=== PATIENT | female | born 1970 | race Caucasian/White ===

== ENCOUNTER 2018-06-11 15:49 | Emergency (ER) | payer OTHER ==
[2018-06-11] MEDS ORDERED: hydrALAzine 20 MG INJ IV (19:30)
[2018-06-11 19:37] LABS: ADD MAN DIFF? NO
[2018-06-11] MEDS: hydrALAzine 20 MG INJ IV (19:43)
[2018-06-11] MEDS: KETOROLAC 30 MG INJ IV (19:47)
[2018-06-11 19:53] LABS: WHITE BLOOD COUNT 12.7 10^3/ul (4.8-10.8)
[2018-06-11 19:53] LABS: BASOPHIL # 0.1 10^3/ul (0.0-0.1); BASOPHILS % 0.6 % (0.0-2.0); EOSINOPHILS # 0.3 10^3/ul (0.0-0.5); EOSINOPHILS % 2.1 % (0.0-7.0); HEMATOCRIT 41.7 % (37.0-47.0); LYMPHOCYTES # 3.1 10^3/ul (0.8-2.9); LYMPHOCYTES % 24.3 % (15.0-51.0); MEAN CORPUSCULAR HEMOGLOBIN 30.6 pg (29.0-33.0); MEAN CORPUSCULAR HGB CONC 33.6 g/dl (32.0-37.0); MEAN CORPUSCULAR VOLUME 91.2 fl (82.0-101.0); MEAN PLATELET VOLUME 9.3 fl (7.4-10.4); MONOCYTE # 0.5 10^3/ul (0.3-0.9); MONOCYTES % 3.9 % (0.0-11.0); NEUTROPHIL # 8.7 10^3/ul (1.6-7.5); NEUTROPHILS % 68.6 % (39.0-77.0); PLATELET COUNT 448 10^3/UL (140-415); RED BLOOD COUNT 4.57 10^6/ul (4.20-5.40); RED CELL DISTRIBUTION WIDTH 12.7 % (11.5-14.5)
[2018-06-11 20:12] LABS: INR 0.79; PT RATIO 0.9
[2018-06-11 20:13] LABS: PARTIAL THROMBOPLASTIN TIME 28.7 Sec (23.0-35.0)
[2018-06-11 20:16] LABS: ALANINE AMINOTRANSFERASE 48 IU/L (13-69); ALBUMIN 4.9 g/dl (3.3-4.9); ALBUMIN/GLOBULIN RATIO 1.19; ALKALINE PHOSPHATASE 107 IU/L (42-121); ANION GAP 13 (5-13); ASPARTATE AMINO TRANSFERASE 31 IU/L (15-46); BILIRUBIN,INDIRECT 0.4 mg/dl (0-1.1); BILIRUBIN,TOTAL 0.4 mg/dl (0.2-1.3); BLOOD UREA NITROGEN 14 mg/dl (7-20); CARBON DIOXIDE 27 mmol/L (21-31); CHLORIDE 102 mmol/L (97-110); CREATININE 0.87 mg/dl (0.44-1.00); GLUCOSE 111 mg/dl (70-220); POTASSIUM 3.9 mmol/L (3.5-5.1); SODIUM 142 mmol/L (135-144)
[2018-06-11 20:28] LABS: TROPONIN-I < 0.012 ng/ml (0.000-0.120)
[2018-06-11] MEDS: morphine 4 MG/ML VIAL IV (21:02)
[2018-06-11] MEDS: ONDANSETRON 4 MG INJ IV (21:02)
== END 2018-06-11 21:48 | disposition home or self-care (01) ==
LOC: E/R 15:49
DX: I10 Essential (primary) hypertension (principal); E03.9 Hypothyroidism, unspecified
CPT/HCPCS: 70450; 80053; 84484; 85025; 85610; 85730; 96374; 96375; 99285-25